=== PATIENT | male | born 1985 | race African-American/Black ===

== ENCOUNTER 2017-09-11 13:47 | Emergency (ER) | payer SELFPAY ==
[~2017-09-11] VITALS: Ht 182.9 cm; Wt 60.0 kg
[2017-09-11 13:49] VITALS: BP 110/80
[2017-09-11 15:57] LABS: BASOPHILS % 0.6 % (0.0-2.0); EOSINOPHILS % 1.4 % (0.0-5.0); HEMATOCRIT. 41.2 % (42.0-52.0); HEMOGLOBIN. 13.7 g/dL (14.0-18.0); LYMPHOCYTES % 16.8 % (20.0-50.0); MEAN CORPUSCULAR HEMOGLOBIN 30.8 pg (28.0-32.0); MEAN CORPUSCULAR VOLUME 92.8 fL (80.0-94.0); MEAN PLATELET VOLUME 8.9 fl (7.4-10.4); MONOCYTES % 8.4 % (2.0-8.0); NEUTROPHILS % 72.8 % (40.0-76.0); PLATELET 168 x1000/uL (130-400); RED BLOOD CELL COUNT 4.44 mill/uL (4.7-6.1); RED CELL DISTRIBUTION WIDTH 14.5 % (11.6-14.6)
[2017-09-11 16:00] LABS: CHLORIDE 105 mEq/L (98-107)
== END 2017-09-11 16:06 | disposition left against medical advice (07) ==
LOC: ER 13:59
DX: L03.115 Cellulitis of right lower limb (principal); E11.9 Type 2 diabetes mellitus without complications
CPT/HCPCS: 36415; 80048; 85025; 99284